=== PATIENT | female | born 1980 | race Caucasian/White ===

== ENCOUNTER 2016-12-09 00:09 | Emergency (ER) | payer SELFPAY ==
[~2016-12-09 00:09] MED LIST: AMOX-291 PO; HYDR-3240 PO
== END 2016-12-09 00:16 | disposition home or self-care (01) ==
LOC: ED 00:12
DX: L02.414 Cutaneous abscess of left upper limb (principal); Z53.21 Procedure and treatment not carried out due to patient leaving prior to being seen by health care provider